=== PATIENT | female | born 1970 | race Hispanic/Latino ===

== ENCOUNTER 2020-01-02 07:00 | Emergency (ER) | payer SELFPAY ==
[2020-01-02 07:51] LABS: Bacteria,Urine 4+ /HPF (Negative); Bilirubin,Urine NEG (Negative); Blood,Urine LG (Negative); Color,Urine Yellow (Yellow); Mucus,Urine 3+ /HPF; Protein,Urine <15 mg/dL mg/dL (Negative); Urobilinogen,Urine < 2.0 mg/dL (<2.0)
--- NOTE | 2020-01-02 08:09 | Emergency Department Report ---
ED General Adult HPI - General Chief complaint: Psych Stated complaint: SUICIDAL IDEATIONS PUI?: No Time Seen by Provider: 01/02/20 07:45 Source: patient, RN notes reviewed Mode of arrival: Ambulatory Limitations: No Limitations - History of Present Illness Initial comments: Patient is a 49-year-old female who is not known to myself previously. She has of a past medical history of substance abuse, bipolar depression, and reports that she is not having fever, cough, or exposure to the coronavirus. She presents to the ER today with a complaint of painless suicidality, and contemplation of suicide. She cut herself superficially on the dorsal lateral distal aspect of her left upper extremity recently. She denies physical pain. She denies overdose. She denies cough, fever, and exposure to coronavirus. She denies irritative and obstructive urinary symptoms. She is not homicidal. She is not have access to guns or to firearms. She is also depressed. Her symptoms are constant, worsened through numerous psychosocial factors. They do not have relieving factors that she is aware of. Her symptoms do not radiate anywhere. -: days(s) Quality: other Consistency: other Improves with: other Worsens with: other Associated Symptoms: other - Related Data Allergies Allergy/AdvReac Type Severity Reaction Status Date / Time No Known Allergies Allergy Unverified 01/02/20 07:18 ED Review of Systems ROS: Stated complaint: SUICIDAL IDEATIONS Other details as noted in HPI Constitutional: denies: fever Eyes: denies: eye discharge ENT: denies: congestion Respiratory: denies: wheezing Cardiovascular: denies: syncope Gastrointestinal: denies: abdominal pain Genitourinary: denies: dysuria Musculoskeletal: denies: myalgia Skin: as per HPI Neurological: as per HPI Psychiatric: depression, suicidal thoughts ED Past Medical Hx - Past Medical History Previous Medical History?: Yes Hx Psychiatric Treatment: Yes (depression) - Surgical History Past Surgical History?: Yes Additional Surgical History: tubal ligation - Social History Smoking Status: Never Smoker Substance Use Type: Cocaine ED Physical Exam - General Limitations: No Limitations General appearance: alert, in no apparent distress - Head Head exam: Present: atraumatic, normocephalic - Eye Eye exam: Present: normal appearance, EOMI. Absent: nystagmus - ENT ENT exam: Present: normal exam, normal orophraynx, mucous membranes moist, normal external ear exam - Neck Neck exam: Present: normal inspection, full ROM. Absent: tenderness, meningismus - Respiratory Respiratory exam: Present: normal lung sounds bilaterally. Absent: respiratory distress - Cardiovascular Cardiovascular Exam: Present: regular rate, normal rhythm, normal heart sounds. Absent: bradycardia, tachycardia, irregular rhythm, systolic murmur, diastolic murmur, rubs, gallop - GI/Abdominal GI/Abdominal exam: Present: soft. Absent: distended, tenderness, guarding, rebound, rigid, pulsatile mass - Extremities Exam Extremities exam: Present: normal inspection, full ROM, other (2+ pulses noted in the bilateral upper and lower extremities. There is no palpable cord. negative Homans sign. Muscular compartments are soft. The pelvis is stable.). Absent: pedal edema, calf tenderness - Back Exam Back exam: Present: normal inspection, full ROM. Absent: tenderness, CVA tenderness (R), CVA tenderness (L), paraspinal tenderness, vertebral tenderness - Neurological Exam Neurological exam: Present: alert, oriented X3, normal gait, other (No facial droop. Tongue midline. Extraocular movements intact bilaterally. Facial sensation intact to light touch in V1, V2, V3 distribution bilaterally. 5 and a 5 strength in 4 extremities. Sensation intact to light touch in 4 extremities.). Absent: motor sensory deficit - Psychiatric Psychiatric exam: Present: depressed, suicidal ideation. Absent: agitated, manic, homicidal ideation - Skin Skin exam: Present: warm, dry, intact, normal color. Absent: rash ED Course Vital Signs 01/02/20 01/02/20 01/02/20 07:19 09:43 15:32 Temperature 97.8 F 97.9 F 97.9 F Pulse Rate 87 87 81 Respiratory 16 18 20 Rate Blood Pressure 133/73 Blood Pressure 124/67 131/74 [Left] O2 Sat by Pulse 97 98 98 Oximetry - Reevaluation(s) Reevaluation #1: 01/02/20 08:13 Differential diagnosis, including but not limited to: Depression, dysthymia, medical clearance for psychiatric placement Assessment and plan: 29-year-old female with a complaint of depression and passive suicidality. She is afebrile with reassuring vital signs, with an unremarkable and benign physical examination. She has a superficial linear abrasion noted to the left lateral volar aspect of her forearm, without deep laceration. She is neurovascularly intact. She is pleasant, calm and cooperative. She is placed on emergency room hold, screening laboratory studies ordered, including repeat clean-catch urinalysis, as the initial sample was contaminated with epithelial cells. I asked the patient if she was concerned about exposure to coronavirus, and getting sick from the aforementioned. The patient stated that she did not want to get exposed to coronavirus, and indicated "I do not want to get sick from that thing." For these reasons, I doubt that the patient will be criteria for inpatient psychiatric hospitalization. Reevaluation #2: 01/02/20 09:11 Laboratory studies at this point in time unremarkable for emergent toxicologic or metabolic insult. Patient resting comfortably, and in no acute distress. At this point time, the patient does not appear to have an immediate medical contraindication to psychiatric admission, evaluation, consultation and placement. Repeat urinalysis is pending. Reevaluation #3: 01/02/20 12:50 Repeat urinalysis more contaminated than the first sample. Additional urinalysis is requested. I specifically instructed the nurse to obtain a clean- catch urine sample. Reevaluation #4: 01/02/20 15:37 Urinalysis #3 is reviewed and appreciated, does not demonstrate epithelial cells, this urinalysis is not consistent with a urinary tract infection, the patient did not endorse any irritative or obstructive urinary symptoms. Patient remains medically suitable for psychiatric consultation and placement at this time. ED Medical Decision Making - Lab Data Result diagrams: 01/02/20 08:00 01/02/20 08:00 Vital Signs 01/02/20 07:19 Temperature 97.8 F Pulse Rate 87 Respiratory 16 Rate Blood Pressure 133/73 O2 Sat by Pulse 97 Oximetry Lab Results 01/02/20 01/02/20 Range/Units 08:00 Unknown WBC 8.1 (4.5-11.0) K/mm3 RBC 4.92 (3.65-5.03) M/mm3 Hgb 14.2 (10.1-14.3) gm/dl Hct 42.1 (30.3-42.9) % MCV 86 (79-97) fl MCH 29 (28-32) pg MCHC 34 (30-34) % RDW 13.6 (13.2-15.2) % Plt Count 194 (140-440) K/mm3 Lymph % (Auto) 17.2 (13.4-35.0) % [place] % (Auto) 6.4 (0.0-7.3) % Eos % (Auto) 1.7 (0.0-4.3) % Baso % (Auto) 1.1 (0.0-1.8) % Lymph # 1.4 (1.2-5.4) K/mm3 [place] # 0.5 (0.0-0.8) K/mm3 Eos # 0.1 (0.0-0.4) K/mm3 Baso # 0.1 (0.0-0.1) K/mm3 Seg Neutrophils % 73.6 H (40.0-70.0) % Seg Neutrophils # 6.0 (1.8-7.7) K/mm3 Urine Color Yellow (Yellow) Urine Turbidity Slightly-cloudy (Clear) Urine pH 5.0 (5.0-7.0) Ur Specific [place] 1.023 (1.003-1.030) Urine Protein <15 mg/dl (Negative) mg/dL Urine Glucose (UA) Neg (Negative) mg/dL Urine Ketones Tr (Negative) mg/dL Urine Blood Lg (Negative) Urine Nitrite Pos (Negative) Urine Bilirubin Neg (Negative) Urine Urobilinogen < 2.0 (<2.0) mg/dL Ur Leukocyte Esterase Mod (Negative) Urine WBC (Auto) 50.0 H (0.0-6.0) /HPF Urine RBC (Auto) 7.0 (0.0-6.0) /HPF U Epithel Cells (Auto) 19.0 H (0-13.0) /HPF Urine Bacteria (Auto) 4+ (Negative) /HPF Urine Mucus 3+ /HPF Lab Results 01/02/20 01/02/20 01/02/20 Range/Units 08:00 08:00 08:00 WBC 8.1 (4.5-11.0) K/mm3 RBC 4.92 (3.65-5.03) M/mm3 Hgb 14.2 (10.1-14.3) gm/dl Hct 42.1 (30.3-42.9) % MCV 86 (79-97) fl MCH 29 (28-32) pg MCHC 34 (30-34) % RDW 13.6 (13.2-15.2) % Plt Count 194 (140-440) K/mm3 Lymph % (Auto) 17.2 (13.4-35.0) % [place] % (Auto) 6.4 (0.0-7.3) % Eos % (Auto) 1.7 (0.0-4.3) % Baso % (Auto) 1.1 (0.0-1.8) % Lymph # 1.4 (1.2-5.4) K/mm3 [place] # 0.5 (0.0-0.8) K/mm3 Eos # 0.1 (0.0-0.4) K/mm3 Baso # 0.1 (0.0-0.1) K/mm3 Seg Neutrophils % 73.6 H (40.0-70.0) % Seg Neutrophils # 6.0 (1.8-7.7) K/mm3 Sodium 138 (137-145) mmol/L Potassium 4.4 (3.6-5.0) mmol/L Chloride 100.9 (98-107) mmol/L Carbon Dioxide 25 (22-30) mmol/L Anion Gap 17 mmol/L BUN 12 (7-17) mg/dL Creatinine 0.9 (0.7-1.2) mg/dL Estimated GFR > 60 ml/min BUN/Creatinine Ratio 13 % Glucose 107 H (65-100) mg/dL Calcium 9.8 (8.4-10.2) mg/dL Magnesium 2.30 (1.7-2.3) mg/dL Total Creatine Kinase 129 (30-135) units/L Urine Color (Yellow) Urine Turbidity (Clear) Urine pH (5.0-7.0) Ur Specific [place] (1.003-1.030) Urine Protein (Negative) mg/dL Urine Glucose (UA) (Negative) mg/dL Urine Ketones (Negative) mg/dL Urine Blood (Negative) Urine Nitrite (Negative) Urine Bilirubin (Negative) Urine Urobilinogen (<2.0) mg/dL Ur Leukocyte Esterase (Negative) Urine WBC (Auto) (0.0-6.0) /HPF Urine RBC (Auto) (0.0-6.0) /HPF U Epithel Cells (Auto) (0-13.0) /HPF Urine Bacteria (Auto) (Negative) /HPF Urine Mucus /HPF Urine HCG, Qual (Negative) Urine Opiates Screen Urine Methadone Screen Ur Barbiturates Screen Ur Phencyclidine Scrn Ur Amphetamines Screen U Benzodiazepines Scrn Urine Cocaine Screen U Marijuana (THC) Screen 01/02/20 01/02/20 01/02/20 Range/Units Unknown Unknown Unknown WBC (4.5-11.0) K/mm3 RBC (3.65-5.03) M/mm3 Hgb (10.1-14.3) gm/dl Hct (30.3-42.9) % MCV (79-97) fl MCH (28-32) pg MCHC (30-34) % RDW (13.2-15.2) % Plt Count (140-440) K/mm3 Lymph % (Auto) (13.4-35.0) % [place] % (Auto) (0.0-7.3) % Eos % (Auto) (0.0-4.3) % Baso % (Auto) (0.0-1.8) % Lymph # (1.2-5.4) K/mm3 [place] # (0.0-0.8) K/mm3 Eos # (0.0-0.4) K/mm3 Baso # (0.0-0.1) K/mm3 Seg Neutrophils % (40.0-70.0) % Seg Neutrophils # (1.8-7.7) K/mm3 Sodium (137-145) mmol/L Potassium (3.6-5.0) mmol/L Chloride (98-107) mmol/L Carbon Dioxide (22-30) mmol/L Anion Gap mmol/L BUN (7-17) mg/dL Creatinine (0.7-1.2) mg/dL Estimated GFR ml/min BUN/Creatinine Ratio % Glucose (65-100) mg/dL Calcium (8.4-10.2) mg/dL Magnesium (1.7-2.3) mg/dL Total Creatine Kinase (30-135) units/L Urine Color Yellow (Yellow) Urine Turbidity Slightly-cloudy (Clear) Urine pH 5.0 (5.0-7.0) Ur Specific [place] 1.023 (1.003-1.030) Urine Protein <15 mg/dl (Negative) mg/dL Urine Glucose (UA) Neg (Negative) mg/dL Urine Ketones Tr (Negative) mg/dL Urine Blood Lg (Negative) Urine Nitrite Pos (Negative) Urine Bilirubin Neg (Negative) Urine Urobilinogen < 2.0 (<2.0) mg/dL Ur Leukocyte Esterase Mod (Negative) Urine WBC (Auto) 50.0 H (0.0-6.0) /HPF Urine RBC (Auto) 7.0 (0.0-6.0) /HPF U Epithel Cells (Auto) 19.0 H (0-13.0) /HPF Urine Bacteria (Auto) 4+ (Negative) /HPF Urine Mucus 3+ /HPF Urine HCG, Qual Negative (Negative) Urine Opiates Screen Presumptive negative Urine Methadone Screen Presumptive negative Ur Barbiturates Screen Presumptive negative Ur Phencyclidine Scrn Presumptive negative Ur Amphetamines Screen Presumptive positive U Benzodiazepines Scrn Presumptive negative Urine Cocaine Screen Presumptive positive U Marijuana (THC) Screen Presumptive negative Critical care attestation.: If time is entered above; I have spent that time in minutes in the direct care of this critically ill patient, excluding procedure time. ED Disposition Condition: Stable Referrals: PRIMARY CARE, [Primary Care Provider] - 3-5 Days
[2020-01-02 08:13] LABS: Basophils # (Auto) 0.1 K/mm3 (0.0-0.1); Basophils % (Auto) 1.1 % (0.0-1.8); Eosinophils # (Auto) 0.1 K/mm3 (0.0-0.4); Eosinophils % (Auto) 1.7 % (0.0-4.3); Hematocrit 42.1 % (30.3-42.9); Hemoglobin 14.2 gm/dl (10.1-14.3); Lymphocytes # (Auto) 1.4 K/mm3 (1.2-5.4); Lymphocytes % (Auto) 17.2 % (13.4-35.0); Mean Corpuscular HGB Conc 34 % (30-34); Mean Corpuscular Volume 86 fl (79-97); Monocytes # (Auto) 0.5 K/mm3 (0.0-0.8); Monocytes % (Auto) 6.4 % (0.0-7.3); Platelet Count 194 K/mm3 (140-440); Red Blood Count 4.92 M/mm3 (3.65-5.03); Red Cell Distribution Width 13.6 % (13.2-15.2)
[2020-01-02 08:19] LABS: Benzodiazepines Screen,Urine PRESUMPTIVE NEGATIVE; Cannabinoid Screen,Urine PRESUMPTIVE NEGATIVE; Methadone Screen,Urine PRESUMPTIVE NEGATIVE; Opiate Screen,Urine PRESUMPTIVE NEGATIVE
[2020-01-02 08:22] LABS: HCG Qualitative,Urine Negative (Negative)
[2020-01-02 08:35] LABS: Amphetamine Screen,Urine PRESUMPTIVE POSITIVE; Cocaine Screen,Urine PRESUMPTIVE POSITIVE
[2020-01-02 08:35] LABS: BUN/Creatinine Ratio 13; Blood Urea Nitrogen 12 mg/dL (7-17); Calcium 9.8 mg/dL (8.4-10.2); Hemolysis Index 6
[2020-01-02 11:36] LABS: Bacteria,Urine 4+ /HPF (Negative); Bilirubin,Urine NEG (Negative); Blood,Urine SM (Negative); Color,Urine Yellow (Yellow); Mucus,Urine 3+ /HPF; Protein,Urine <15 mg/dL mg/dL (Negative); Urobilinogen,Urine < 2.0 mg/dL (<2.0)
[2020-01-02 15:00] LABS: Bacteria,Urine 3+ /HPF (Negative); Bilirubin,Urine NEG (Negative); Blood,Urine NEG (Negative); Color,Urine Yellow (Yellow); Mucus,Urine 2+ /HPF; Protein,Urine <15 mg/dL mg/dL (Negative); Urobilinogen,Urine < 2.0 mg/dL (<2.0)
--- NOTE | 2020-01-03 12:39 | Consultation ---
History of Present Illness - Reason for Consult Consult date: 01/03/20 Reason for consult: SI - History of Present Psychiatric Illness Alayna Johnson is a 49y/o female patient who c/o "suicidal ideation with a plan to take pills." The patient is a/o x 3. She is calm and cooperative. She says she is "overwhelmed and overworked, and grieving the 6yr loss of my daugh ter." She this caused her to "relapse no crack cocaine." The patient also c/o being "paranoid." She says "I feel like people are against me and after me." She denies hallucinations of any kind. She states she was "[facility]." She describes her alcohol use as "occasion." The patient states she does not use nicotine, but "vapes." She says she attempted suicide "one other time after my daughter committed suicide." The patient states she has been admitted about "four times." She says she was diagnosed with "bipolar, anxiety and depression." She says she was on "lamictal and celexa but been off meds." PAST PSYCHIATRIC HISTORY: Diagnoses: Anxiety, depression, Bipolar Suicide attempts or Self-harm behavior: Once Prior psychiatric hospitalizations: 4 times Substance Abuse history: "crack cocaine" Previous psychiatric medications tried: celexa and lamictal Outpatient treatment: None at present PAST MEDICAL HISTORY: None reported Family Psychiatric History: None reported or documented SOCIAL HISTORY Current living status: Homeless Highest level of education: 12th Marital status: Legal history: Denies History of abuse: crack cocaine REVIEW OF SYSTEMS Constitutional: Negative for weight loss ENT: Negative for stridor Respiratory: Negative for cough or hemoptysis All other systems reviewed and are negative MENTAL STATUS EXAMINATION General Appearance: Dressed appropriately Behavior: Calm, cooperative. Mood: "overwhelmed, grieving" Affect: Congruent with stated mood Speech: Normal tone and pace Thought Process: Goal oriented Thought Content: Suicidal Ideation: Yes, with plan Homicidal Ideation: Denies Hallucinations: Denies Delusions: Yes, paranoid Insight and Judgment: Limited Memory/Cognition: Limited Assessment Bipolar Disorder, Current Episode Depressed with Psychotic Features Plan Depakote DR 125mg po BID Seroquel 25mg po BID Prozac 10mg po daily to treat underlying depression Trazodone 50mg po qhs Sitter: Defer to primary Medical: per primary Disposition: The patient meets the requirement for acute inpatient psychiatric treatment. Please transfer to an acute psychiatric facility once medically clear. Will continue to follow the patient until transferred or until she is improved enough for discharge. Please call with any questions or concerns. Thank you for this consult. Medications and Allergies Allergies Allergy/AdvReac Type Severity Reaction Status Date / Time No Known Allergies Allergy Unverified 01/02/20 07:18 Mental Status Exam - Vital signs Last Vital Signs Temp 98.3 F 01/03/20 08:00 Pulse 87 01/03/20 08:00 Resp 18 01/03/20 08:00 BP 120/67 01/03/20 08:00 Pulse Ox 98 01/03/20 08:00 Results Result Diagrams: 01/02/20 08:00 01/02/20 08:00 Abnormal lab results 01/02/20 Range/Units Unknown Urine WBC (Auto) 9.0 H (0.0-6.0) /HPF All other labs normal.
[2020-01-03] MEDS: NITROFURANTOIN MONOHYD/M-CRYST 100 MG CAP PO SCH ×2 (14:47→22:17)
[2020-01-03] MEDS: DIVALPROEX DR 125 MG TAB PO SCH ×2 (14:48→22:17)
[2020-01-03] MEDS: FLUoxetine 10 MG TAB PO SCH (14:48)
[2020-01-03] MEDS: QUEtiapine 25 MG TAB PO SCH ×2 (14:50→22:18)
[2020-01-03] MEDS: traZODone 50 MG TAB PO SCH (22:18)
[2020-01-04] MEDS: NITROFURANTOIN MONOHYD/M-CRYST 100 MG CAP PO SCH ×2 (10:18→21:30)
[2020-01-04] MEDS: DIVALPROEX DR 125 MG TAB PO SCH ×2 (10:18→21:31)
[2020-01-04] MEDS: FLUoxetine 10 MG TAB PO SCH (10:18)
[2020-01-04] MEDS: QUEtiapine 25 MG TAB PO SCH (10:19)
--- NOTE | 2020-01-04 11:46 | Progress Note ---
Subjective - Reason for Consult Consult date: 01/04/20 Reason for consult: MHE Requesting physician: JOHANNA ELIZABETH - Chief Complaint Chief complaint: Per ED Nurse: 2200-No complaints during HS medications. Patient is pacing and feeling anxious at this time. Will continue to assess after medications. Per Provider: I interviewed the patient this morning. Pt reports mood as depressed, sleep improved with medications and appetite is fine. Patient endorses current SI and she still plan to overdose, denies HI. She denies AVH. Nurse reports patient decline to take seroquel, patient states she does not like how it makes her feel. Agreeable to another medication MENTAL STATUS EXAMINATION General Appearance and Behavior: Age appropriate, good hygiene, wearing appropriate clothes, lying in bed, good eye contact, cooperativewith questioning and polite Cooperation: Participating/engaged Psychomotor Behavior: unremarkable and within normal limits Mood: depressed Affect and affective range: congruent with mood Thought Process: Fluent/Logical Thought Content: Within realit Hopelessness Speech: Normal volume, Regular rate and rhythm Intellectual Functioning: Average Suicidal Ideation: Suicidal Homicidal Ideation: Denies HI Impulse Control: Impaired Insight and Judgment: Limited insight and judgment, Impaired Memory: Normal Attention: Normal Assessment and Plan - Patient Problems (1) Methamphetamine use disorder, severe, dependence Current Visit: Yes Status: Acute (2) Cocaine use disorder, severe, dependence Current Visit: Yes Status: Acute (3) Substance-induced psychotic disorder Current Visit: Yes Status: Acute (4) Schizoaffective disorder, bipolar type Current Visit: Yes Status: Acute Plan MEDICATIONS: Discontinue seroquel, start Abilify 15mg day. continue Depakote DR 125mg po BID, Prozac 10mg po daily to treat underlying depression Trazodone 50mg po qhs Risks, benefits and alternatives of medications discussed with the patient, questions answered and consent obtained from patient. PSYCHOTHERAPY: Supportive psychotherapy provided MEDICAL: Per primary team DELIRIUM PRECAUTIONS: Please re-orient patient frequently, keep lights on during the day, and minimize benzodiazepines and opiates as these medications could worsen patient's confusion. TRAPPER ANIMAL: Per Medical team DISPOSITION: indication for acute inpatient psychiatric hospitalization recommended at this time LEGAL STATUS: 1013 FOLLOW-UP: Will follow Thank you for the consult. Please contact with any questions and/or concerns. Mental Status Exam - Vital signs Last Vital Signs Temp 97.6 F 01/04/20 07:00 Pulse 94 H 01/04/20 07:00 Resp 17 01/04/20 10:31 BP 133/78 01/04/20 07:00 Pulse Ox 100 01/04/20 10:31 Assessment and Plan - Patient Problems (1) Methamphetamine use disorder, severe, dependence Current Visit: Yes Status: Acute (2) Cocaine use disorder, severe, dependence Current Visit: Yes Status: Acute (3) Substance-induced psychotic disorder Current Visit: Yes Status: Acute (4) Schizoaffective disorder, bipolar type Current Visit: Yes Status: Acute
[2020-01-04] MEDS ORDERED: ARIPiprazole 15 MG TAB PO ONE (13:00)
[2020-01-04] MEDS: traZODone 50 MG TAB PO SCH (21:32)
[2020-01-05] MEDS: DIVALPROEX DR 125 MG TAB PO SCH ×2 (10:42→21:46)
[2020-01-05] MEDS: NITROFURANTOIN MONOHYD/M-CRYST 100 MG CAP PO SCH ×2 (10:42→21:46)
[2020-01-05] MEDS: FLUoxetine 10 MG TAB PO SCH (10:42)
--- NOTE | 2020-01-05 10:49 | Progress Note ---
Subjective - Reason for Consult Consult date: 01/05/20 Reason for consult: MHE Requesting physician: JOHANNA ELIZABETH - Chief Complaint Chief complaint: Per ED Nurse: 2200-No complaints during HS medications. Patient is pacing and feeling anxious at this time. Will continue to assess after medications. Per Provider: In my interview with the patient this morning, the patient reports mood as sad. Appetite is good. Sleep improved, no nightmares or disturbances. Still experiencing intermittent suicidal ideation, has no complaints with medications today and no AVH. MENTAL STATUS EXAMINATION General Appearance and Behavior: Age appropriate, good hygiene, wearing appropriate clothes, lying in bed, good eye contact, cooperativewith questioning and polite Cooperation: Participating/engaged Psychomotor Behavior: unremarkable and within normal limits Mood: depressed Affect and affective range: congruent with mood Thought Process: Fluent/Logical Thought Content: Within realit Hopelessness Speech: Normal volume, Regular rate and rhythm Intellectual Functioning: Average Suicidal Ideation: Suicidal Homicidal Ideation: Denies HI Impulse Control: Impaired Insight and Judgment: Limited insight and judgment, Impaired Memory: Normal Attention: Normal Assessment and Plan - Patient Problems (1) Methamphetamine use disorder, severe, dependence Current Visit: Yes Status: Acute (2) Cocaine use disorder, severe, dependence Current Visit: Yes Status: Acute (3) Substance-induced psychotic disorder Current Visit: Yes Status: Acute (4) Schizoaffective disorder, bipolar type Current Visit: Yes Status: Acute Plan MEDICATIONS: Continue meds Abilify 15mg day. continue Depakote DR 125mg po BID, Prozac 10mg po daily to treat underlying depression Trazodone 50mg po qhs Risks, benefits and alternatives of medications discussed with the patient, questions answered and consent obtained from patient. PSYCHOTHERAPY: Supportive psychotherapy provided MEDICAL: Per primary team DELIRIUM PRECAUTIONS: Please re-orient patient frequently, keep lights on during the day, and minimize benzodiazepines and opiates as these medications could worsen patient's confusion. PUBLIC RELATIONS OFFICER: Per Medical team DISPOSITION: indication for acute inpatient psychiatric hospitalization recommended at this time LEGAL STATUS: 1013 FOLLOW-UP: Will follow Thank you for the consult. Please contact with any questions and/or concerns. Mental Status Exam - Vital signs Last Vital Signs Temp 99.8 F H 01/05/20 08:00 Pulse 89 01/05/20 08:00 Resp 17 01/05/20 08:00 BP 131/76 01/05/20 08:00 Pulse Ox 99 01/05/20 08:00 Assessment and Plan - Patient Problems (1) Methamphetamine use disorder, severe, dependence Status: Acute (2) Cocaine use disorder, severe, dependence Status: Acute (3) Substance-induced psychotic disorder Status: Acute (4) Schizoaffective disorder, bipolar type Status: Acute
[2020-01-05] MEDS: traZODone 50 MG TAB PO SCH (21:46)
[2020-01-06 08:09] VITALS: BP 105/68
[2020-01-06] MEDS: FLUoxetine 10 MG TAB PO SCH (11:00)
[2020-01-06] MEDS: NITROFURANTOIN MONOHYD/M-CRYST 100 MG CAP PO SCH (11:00)
[2020-01-06] MEDS: DIVALPROEX DR 125 MG TAB PO SCH (11:00)
== END 2020-01-06 11:41 ==
LOC: ED 07:00 → EEVIPCON 07:00 → ED 01-06 11:41
DX: R45.851 Suicidal ideations (principal); F32.9 Major depressive disorder, single episode, unspecified; F14.10 Cocaine abuse, uncomplicated; Z98.51 Tubal ligation status; Z79.899 Other long term (current) drug therapy
CPT/HCPCS: 36415; 80048; 80307; 80320; 81001; 81025; 82550; 83735; 85025; 87086; 87186; G0480